=== PATIENT | male | born 1975 | race Caucasian/White ===

== ENCOUNTER 2017-07-24 20:47 | Emergency (ER) | payer SELFPAY ==
[~2017-07-24] VITALS: Ht 190.5 cm; Wt 120.0 kg
[~2017-07-24 20:47] MED LIST: ADVAI100I PO; DIPH50TA PO; DIVA250ER PO; ZYPR5TAB11 PO
[2017-07-24 20:50] VITALS: BP 164/70; PULSE 67; RESP 16; TEMP 98.3; O2SAT 99
[2017-07-24] MEDS ORDERED: ALPR.5 PO (21:07)
--- NOTE | 2017-07-24 21:07 | PD ---
HPI Chief Complaint: Psychiatric Symptoms Time Seen by Provider: 20:58 Travel History International Travel<30 days: No Contact w/Intl Traveler<30days: No Traveled to known affect area: No History of Present Illness HPI 42-year-old male complains of feeling anxious. Patient has history of bipolar disorder. Patient states that he has not had enough sleep lately and became anxious and aggravated. Patient was advised by his to go the ED for evaluation. Patient was on lithium in the past however has not taken lithium for the past 9 months. Patient was on Xanax in the past. Patient took Xanax 0.5 mg prior to coming to the emergency room this evening. Patient states that he feeling better now. Patient denies any headache. Patient denies any chest pain or shortness of breath. Patient denies abdominal pain. Patient denies any focal weakness or numbness of the extremity. Patient denies alcohol or drug abuse. PFSH Past Medical History Cancer: No Cardiovascular Problems: No Diabetes: No Headaches: No Psychiatric: Yes (See EMR) Seizures: No Social History Alcohol Use: Yes (occassionally ) Tobacco Use: No Substance Use: Yes (REPORTS 3-4 THC JOINTS DAILY) Allergies-Medications (Allergen,Severity, Reaction): Coded Allergies: No Known Allergies (Unverified Adverse Reaction, Unknown, 07/24/17) Per pt. Reported Meds & Prescriptions Reported Meds & Active Scripts Active Zyprexa Zydis (Olanzapine) 5 Mg Tab 5 Mg PO Q12HR 10 Days Depakote ER 250 mg (Divalproex Sodium) 250 Mg Vickie 500 Mg PO HS 10 Days Reported Advair Diskus 100/50 (Salmeterol Xinafoate/Fluticasone) Fluticasone/Salmeterol 100/50 Inh 2 Puff PO BID Benadryl (Diphenhydramine HCl) 50 Mg Cap 50 Mg PO HS Review of Systems General / Constitutional: No: Fever Eyes: No: Visual changes HENT: No: Headaches Cardiovascular: No: Chest Pain or Discomfort Respiratory: No: Shortness of Breath Gastrointestinal: No: Abdominal Pain Genitourinary: No: Dysuria Musculoskeletal: No: Pain Skin: No Rash Neurologic: No: Weakness Psychiatric: No: Depression Endocrine: No: Polydipsia Hematologic/Lymphatic: No: Easy Bruising Physical Exam Narrative GENERAL: Well-nourished, well-developed patient. SKIN: Focused skin assessment warm/dry. HEAD: Normocephalic. EYES: No scleral icterus. No injection or drainage. NECK: Supple, trachea midline. No JVD or lymphadenopathy. CARDIOVASCULAR: Regular rate and rhythm without murmurs, gallops, or rubs. RESPIRATORY: Breath sounds equal bilaterally. No accessory muscle use. GASTROINTESTINAL: Abdomen soft, non-tender, nondistended. MUSCULOSKELETAL: No cyanosis, or edema. BACK: Nontender without obvious deformity. No CVA tenderness. Neurologic exam normal. Data Data Last Documented VS Vital Signs Date Time Temp Pulse Resp B/P (MAP) Pulse Ox O2 Delivery O2 Flow Rate FiO2 07/24/17 20:50 98.3 67 16 164/70 (101) 99 Room Air MDM Medical Decision Making Medical Screen Exam Complete: Yes Emergency Medical Condition: Yes Differential Diagnosis Differential diagnosis including bipolar disorder, adjustment disorder. Narrative Course 42-year-old male feeling anxious and agitated. Patient has history of bipolar disorder. Diagnosis Primary Impression: Bipolar disorder Qualified Codes: F31.61 - Bipolar disorder, current episode mixed, mild Patient Instructions: General Instructions Additional Instructions: Xanax as needed. Follow-up with local physician and psychologist. Return if worse. Med/Other Pt SpecificInfo: Prescription(s) given Scripts Alprazolam (Xanax) 0.5 Mg Tab 0.5 MG PO BID Y for ANXIETY, #10 TAB 0 Refills Prov: Tera Cadet MD 07/24/17 Disposition: 01 DISCHARGE HOME Condition: Stable Tera Cadet MD Jul 24, 2017 21:07
== END 2017-07-24 21:33 | disposition home or self-care (01) ==
LOC: NEPD 20:47
DX: F41.9 Anxiety disorder, unspecified (principal); F31.9 Bipolar disorder, unspecified
CPT/HCPCS: 99283

== ENCOUNTER 2017-07-26 11:22 | Emergency (ER) | payer OTHER ==
[~2017-07-26 11:22] MED LIST changes: -ADVAI100I PO; +ALPR.5 PO; -DIPH50TA PO; -DIVA250ER PO; -ZYPR5TAB11 PO
[2017-07-26 11:24] VITALS: BP 170/86; PULSE 76; RESP 16; TEMP 98.5; O2SAT 99
--- NOTE | 2017-07-26 11:38 | PD ---
HPI Chief Complaint: Medical Clearance Time Seen by Provider: 11:38 Travel History International Travel<30 days: No Contact w/Intl Traveler<30days: No Traveled to known affect area: No History of Present Illness HPI 42-year-old male history of bipolar disorder presents emergency department with his with reports of increased manic activity. Patient denies suicidal or homicidal ideation. Patient did have a psychiatrist Dr. Bailey who he does not see more due to his insurance issues. He states he used to take Zyprexa 5 mg as well as Depakote 500 mg daily. He states he was told he could stop it and just restarted when he "felt he was getting manic". Patient denies any other medical issues currently. is very frustrated that he is not listening to her and his needs for medication. Patient states he has been trying to get a psychiatrist but cannot find one that takes his [facility]. Patient has no known drug allergies. PFSH Past Medical History Bipolar Disorder: Yes Cancer: No Cardiovascular Problems: No Diabetes: No Headaches: No Psychiatric: Yes Immunizations Current: Yes Seizures: No Social History Alcohol Use: Yes (occassionally ) Tobacco Use: No Substance Use: Yes (REPORTS 3-4 THC JOINTS DAILY) Allergies-Medications (Allergen,Severity, Reaction): Coded Allergies: No Known Allergies (Unverified Adverse Reaction, Unknown, 07/24/17) Per pt. Reported Meds & Prescriptions Reported Meds & Active Scripts Active Xanax (Alprazolam) 0.5 Mg Tab 0.5 Mg PO BID PRN Review of Systems Except as stated in HPI: all other systems reviewed are Neg General / Constitutional: No: Fever Eyes: No: Visual changes HENT: No: Headaches Cardiovascular: No: Chest Pain or Discomfort Respiratory: No: Shortness of Breath Gastrointestinal: No: Abdominal Pain Genitourinary: No: Dysuria Musculoskeletal: No: Pain Skin: No Rash Neurologic: No: Weakness Psychiatric: No: Anxiety, Depression, Suicidal Ideations, Substance Abuse, Homicidal Ideation Endocrine: No: Polydipsia Hematologic/Lymphatic: No: Easy Bruising Physical Exam Narrative GENERAL: Patient is cooperative. He appears in no acute distress. He is talkative but not pressured. SKIN: Warm and dry. Normal color. Normal turgor HEAD: Atraumatic. Normocephalic. EYES: Pupils equal and round. No scleral icterus. No injection or drainage. ENT: No nasal bleeding or discharge. Mucous membranes pink and moist. Pharynx is clear. Airways patent NECK: Trachea midline. Supple and nontender CARDIOVASCULAR: Regular rate and rhythm. RESPIRATORY: No accessory muscle use. Clear to auscultation. Breath sounds equal bilaterally. GASTROINTESTINAL: Abdomen soft, non-tender, nondistended. Hepatic and splenic margins not palpable. MUSCULOSKELETAL: Extremities without clubbing, cyanosis, or edema. No obvious deformities. NEUROLOGICAL: Awake and alert. No obvious cranial nerve deficits. Motor grossly within normal limits. Five out of 5 muscle strength in the arms and legs. Normal speech. PSYCHIATRIC: Appropriate mood and affect; insight and judgment normal. No signs of pressured speech although somewhat in denial about his bipolar disease. I do not feel this patient is a danger to himself or others. Data Data Last Documented VS Vital Signs Date Time Temp Pulse Resp B/P (MAP) Pulse Ox O2 Delivery O2 Flow Rate FiO2 07/26/17 11:24 98.5 76 16 170/86 (114) 99 MDM Medical Decision Making Medical Screen Exam Complete: Yes Emergency Medical Condition: Yes Medical Record Reviewed: Yes Differential Diagnosis Anxiety. Bipolar disorder. Noncompliance. Mild pura. Narrative Course I do not feel this patient is a risk to himself or others. Lab work is not deemed necessary at this time I have a long discussion with the patient and recommend that he restart his Depakote 500 mg daily. Recommend close follow-up with a psychiatrist for further evaluation and treatment. Patient can take Xanax as was prescribed as needed. Diagnosis Primary Impression: Bipolar disorder Qualified Codes: F31.11 - Bipolar disorder, current episode manic without psychotic features, mild Referrals: Psychiatrist Patient Instructions: General Instructions Additional Instructions: I do not feel this patient is a risk to himself or others. Lab work is not deemed necessary at this time I have a long discussion with the patient and recommend that he restart his Depakote 500 mg daily. Recommend close follow-up with a psychiatrist for further evaluation and treatment. Patient can take Xanax as was prescribed as needed. Med/Other Pt SpecificInfo: No Change to Meds Disposition: 01 DISCHARGE HOME Condition: Stable Beni Stevens Jul 26, 2017 11:38
== END 2017-07-26 12:18 | disposition home or self-care (01) ==
LOC: NEPD 11:22
DX: F31.11 Bipolar disorder, current episode manic without psychotic features, mild (principal)
CPT/HCPCS: 99282

== ENCOUNTER 2017-08-17 15:16 | Emergency (ER) | payer OTHER ==
[2017-08-17 15:32] VITALS: BP 159/78; PULSE 80; RESP 18; TEMP 98.3; O2SAT 98
--- NOTE | 2017-08-17 16:36 | PD ---
HPI Chief Complaint: Psychiatric Symptoms Time Seen by Provider: 15:32 Travel History International Travel<30 days: No Contact w/Intl Traveler<30days: No Traveled to known affect area: No History of Present Illness HPI Patient is a 42-year-old male presenting to the department for psychiatric evaluation voluntarily. states he is bipolar and is in a manic phase and won't do anything about it. She is concerned about his behavior. He recently walked 23 miles because he was "pissed off". Denies suicidal ideations. He states he doesn't want to take any medications. Symptom onset was gradual, symptomatic severity is [id number]. There are no alleviating factors. She has no physical complaints at this time. Patient does not feel he has any issues. He states that he came in because his wanted him to do. PFSH Past Medical History Bipolar Disorder: Yes Cancer: No Cardiovascular Problems: No Diabetes: No Headaches: No Psychiatric: Yes Immunizations Current: Yes Seizures: No Social History Alcohol Use: Yes (occassionally ) Tobacco Use: No Substance Use: Yes (REPORTS 3-4 THC JOINTS DAILY) Allergies-Medications (Allergen,Severity, Reaction): Coded Allergies: No Known Allergies (Unverified Adverse Reaction, Unknown, 07/24/17) Per pt. Reported Meds & Prescriptions Reported Meds & Active Scripts Active Xanax (Alprazolam) 0.5 Mg Tab 0.5 Mg PO BID PRN Review of Systems Except as stated in HPI: all other systems reviewed are Neg Psychiatric: Positive: Mood Disorder, No: Suicidal Ideations, Homicidal Ideation Physical Exam Narrative GENERAL: Well-developed, well-nourished, alert male. Presenting in no acute distress. SKIN: Warm and dry. HEAD: Normocephalic. EYES: No scleral icterus. No injection or drainage. NECK: Supple, trachea midline. No JVD or lymphadenopathy. CARDIOVASCULAR: Regular rate RESPIRATORY: No accessory muscle use. Data Data Last Documented VS Vital Signs Date Time Temp Pulse Resp B/P (MAP) Pulse Ox O2 Delivery O2 Flow Rate FiO2 08/17/17 15:32 98.3 80 18 159/78 (105) 98 Orders Orders Complete Blood Count With Diff (08/17/17 15:35) Comprehensive Metabolic Panel (08/17/17 15:35) Thyroid Stimulating Hormone (08/17/17 15:35) Urinalysis - C+S If Indicated (08/17/17 15:35) Psych Screen (08/17/17 15:35) Drug Screen, Random Urine (08/17/17 15:35) MDM Medical Decision Making Medical Screen Exam Complete: Yes Emergency Medical Condition: Yes Interpretation(s) Vital Signs Date Time Temp Pulse Resp B/P (MAP) Pulse Ox O2 Delivery O2 Flow Rate FiO2 08/17/17 15:32 98.3 80 18 159/78 (105) 98 Differential Diagnosis Mood disorder versus substance abuse versus bipolar disorder versus pura versus other Narrative Course Patient is a 42-year-old male presenting voluntarily for psychiatric evaluation due to manic episode. Patient's vital signs are stable. Labs ordered and pending. Patient is refusing to provide urine. Patient is awaiting bed placement. Patient denies any suicidal ideations. Patient was called to place in the bed, he was no longer found in the emergency department. patient left AMA. Diagnosis Primary Impression: Left against medical advice Yesenia Delgdao Aug 17, 2017 16:36
== END 2017-08-17 17:03 | disposition left against medical advice (07) ==
LOC: NED 15:16
DX: F31.9 Bipolar disorder, unspecified (principal)
CPT/HCPCS: 99281